=== PATIENT | male | born 1955 | race Caucasian/White ===

== ENCOUNTER → 2018-01-05 | Outpatient (CLI) | payer MEDICARE ==
--- NOTE | 2018-01-05 15:03 | Diagnostic Imaging Report ---
EXAMINATION: PA and lateral views of the chest. COMPARISON: None CLINICAL HISTORY: Shortness of breath DISCUSSION: The lungs are well-inflated. No focal airspace consolidation, pleural effusion, or pneumothorax. Linear opacity in the right middle lobe compatible with subsegmental atelectasis. Tortuosity and atherosclerotic calcification of the thoracic aorta with otherwise normal cardiomediastinal contour. No acute osseous abnormality. IMPRESSION: Subsegmental atelectasis in the right middle lobe. Otherwise no acute cardiopulmonary abnormality. Signed by: Dr. Walter Calvo M.D. on 01/05/2018 2:58 PM
== END ==
LOC: RAD 14:05
PROVIDERS: ATTEND Internal Medicine Pulmonary Disease
DX: R06.02 Shortness of breath (principal)
CPT/HCPCS: 71046

== ENCOUNTER → 2020-07-11 | Outpatient (CLI) | payer OTHER | LOC: DX 13:05 | PROVIDERS: ATTEND Internal Medicine | DX: Z13.820 Encounter for screening for osteoporosis (principal); M85.80 Other specified disorders of bone density and structure, unspecified site | CPT/HCPCS: 77080 ==

== ENCOUNTER → 2021-05-01 | Day surgery (SDC) | payer MEDICARE, OTHER ==
[~2021-05-01] MED LIST: DIAZEPAM5 MG PO; EYE DROPS15 M1; FLOMAX0.4 MG PO; LISINOPRIL5 MG PO; METHADONE HCL40 MG PO; OR PHACO EYE KIT ONE; PREOP PHACO EYE KIT ONE; antibiotic PO
[2021-05-01 13:55] VITALS: BP 147/93
== END | disposition home or self-care (01) ==
LOC: OR 11:23
PROVIDERS: ATTEND Ophthalmology
DX: H25.12 Age-related nuclear cataract, left eye (principal); E66.9 Obesity, unspecified; N39.0 Urinary tract infection, site not specified; N20.0 Calculus of kidney; R32 Unspecified urinary incontinence; J44.9 Chronic obstructive pulmonary disease, unspecified; I25.2 Old myocardial infarction; I25.10 Atherosclerotic heart disease of native coronary artery without angina pectoris; M54.9 Dorsalgia, unspecified; F41.9 Anxiety disorder, unspecified; F32.A Depression, unspecified; Z88.6 Allergy status to analgesic agent; Z01.812 Encounter for preprocedural laboratory examination; Z20.822 Contact with and (suspected) exposure to COVID-19; Z79.899 Other long term (current) drug therapy; Z68.34 Body mass index [BMI] 34.0-34.9, adult; Z86.19 Personal history of other infectious and parasitic diseases
CPT/HCPCS: U0002

== ENCOUNTER → 2022-01-22 | Outpatient (CLI) | payer OTHER ==
[~2022-01-22] MED LIST changes: -OR PHACO EYE KIT ONE; -PREOP PHACO EYE KIT ONE
== END ==
LOC: RAD 12:49
PROVIDERS: ATTEND Internal Medicine
DX: S92.52 Fracture of middle phalanx of lesser toe(s) (principal)

== ENCOUNTER 2022-03-10 16:16 | Inpatient (IN) | payer MEDICARE, OTHER ==
[~2022-03-10] VITALS: Ht 182.9 cm; Wt 110.3 kg
[2022-03-10 16:48] LABS: BASOPHILS % 0.3 % (0.0-1.0); EOSINOPHILS % 0.1 % (0.0-6.0); HEMATOCRIT 51.3 % (38.2-49.6); HEMOGLOBIN 15.6 g/dL (14.0-18.0); LYMPHOCYTES # (AUTO) 1.8 (1.0-3.2); MEAN CORPUSCULAR HEMOGLOBIN 29.1 pg (28-32); MEAN CORPUSCULAR HGB CONC 30.4 g/dL (31-35); MEAN CORPUSCULAR VOLUME 95.5 fL (81-99); MONOCYTES # (AUTO) 1.2 (0.2-0.8); MONOCYTES % 8.1 % (4.4-11.3); NEUTROPHILS % 78.5 % (38.7-80.0); PLATELET COUNT 233 x10e3/uL (140-360); RED BLOOD COUNT 5.37 x10e6/uL (4.3-5.7); RED CELL DISTRIBUTION WIDTH 15.9 % (11.7-14.4)
[2022-03-10 17:05] LABS: ALBUMIN 3.6 g/dL (3.5-5.0); ALBUMIN/GLOBULIN RATIO 0.9 (0.8-2.0); ANION GAP 18.4 mmol/L (8-16); CALCIUM 7.1 mg/dL (8.4-10.2); POTASSIUM 4.4 mmol/L (3.5-5.1)
[2022-03-10 17:37] LABS: CREATININE, SERUM 1.43 mg/dL (0.72-1.25)
[2022-03-10] MEDS ORDERED: ALBUTEROL SULF 0.083% NEB SOLN 3 ML NEB NEB STA (18:12)
[2022-03-10] MEDS ORDERED: METHYLPREDNISOLONE SOD SUCC 125 MG/2ML VIAL IV ONE (18:15)
[2022-03-10] MEDS ORDERED: IPRATROPIUM BROMIDE 0.02% 2.5 ML NEB NEB ONE (18:15)
[2022-03-10] MEDS ORDERED: SODIUM CHLORIDE 0.9% 1000ML 1,000 ML IV ONE (18:15)
[2022-03-10] MEDS ORDERED: SODIUM CHLORIDE FLUSH 10 ML SYR INJ PRN (19:30)
[2022-03-10 19:50] LABS: CLARITY,URINE SL CLOUDY (CLEAR); COLOR,URINE AMBER (YELLOW); KETONES,URINE TRACE (NEGATIVE); LEUKOCYTE ESTERASE ,URINE NEGATIVE (NEGATIVE); NITRITE,URINE NEGATIVE (NEGATIVE); PROTEIN,URINE DIPSTICK 2+ (NEGATIVE); URINE UROBILINOGEN 1 mg/dL (0.2 - 1)
[2022-03-10 20:00] VITALS: BP 118/73
[2022-03-10 20:24] LABS: BACTERIA,URINE RARE /HPF; WBC,URINE (MAN) 0-5 /HPF (0-5)
[2022-03-10 20:25] LABS: EPITHELIAL CELLS,URINE RARE /LPF
[2022-03-10] MEDS: ACETAMINOPHEN 325 MG TAB PO PRN (20:42)
[2022-03-10 20:51] VITALS: BP 118/73
[2022-03-10] MEDS: ALBUTEROL/IPRATROPIUM 3 ML NEB NEB SCH (23:00)
[2022-03-10] MEDS ORDERED: LISINOPRIL2.5 MG PO (23:57)
[2022-03-11] VITALS (7 sets, daily range): BP systolic 108–143; BP diastolic 62–81
[2022-03-11] MEDS: METHYLPREDNISOLONE SOD SUCC 40 MG/ML VIAL 1ML IV SCH ×3 (00:51→17:24)
[2022-03-11] MEDS: ALBUTEROL/IPRATROPIUM 3 ML NEB NEB SCH ×6 (03:00→23:35)
[2022-03-11 05:01] LABS: BASOPHILS % 0.1 % (0.0-1.0); HEMATOCRIT 48.4 % (38.2-49.6); HEMOGLOBIN 14.7 g/dL (14.0-18.0); LYMPHOCYTES % 9.8 % (18.0-39.1); MEAN CORPUSCULAR HEMOGLOBIN 29.5 pg (28-32); MEAN CORPUSCULAR HGB CONC 30.4 g/dL (31-35); MEAN CORPUSCULAR VOLUME 97.2 fL (81-99); MONOCYTES # (AUTO) 0.4 (0.2-0.8); MONOCYTES % 3.4 % (4.4-11.3); NEUTROPHILS # (AUTO) 9.1 (2.1-6.9); NEUTROPHILS % 85.8 % (38.7-80.0); PLATELET COUNT 212 x10e3/uL (140-360); RED BLOOD COUNT 4.98 x10e6/uL (4.3-5.7); RED CELL DISTRIBUTION WIDTH 15.9 % (11.7-14.4)
[2022-03-11 07:16] LABS: ANION GAP 16.5 mmol/L (8-16); CALCIUM 8.8 mg/dL (8.4-10.2); CREATININE, SERUM 1.09 mg/dL (0.72-1.25); POTASSIUM 5.5 mmol/L (3.5-5.1)
[2022-03-11 08:00] LABS: CREATINE KINASE MB 13.8 ng/mL (0-5.0)
[2022-03-11] MEDS ORDERED: ONDANSETRON HCL INJ 2MG/ML 2ML 2 MG/ML VIAL IV PRN (08:45)
[2022-03-11] MEDS ORDERED: METHADONE HCL 10 MG TAB PO SCH (09:00)
[2022-03-11] MEDS: DIAZEPAM 5 MG TAB PO PRN ×3 (09:10→22:17)
[2022-03-11] MEDS: ACETAMINOPHEN 325 MG TAB PO PRN (09:10)
[2022-03-11] MEDS ORDERED: SODIUM CHLORIDE 0.9% 250ML 250 ML ONE (09:17)
[2022-03-11] MEDS: METHADONE HCL 10 MG TAB PO SCH (13:00)
[2022-03-11] MEDS: SODIUM CHLORIDE 0.9% 1000ML 1,000 ML IV SCH ×2 (13:00→22:18)
[2022-03-11 13:04] LABS: ANION GAP 14.7 mmol/L (8-16); CALCIUM 8.2 mg/dL (8.4-10.2); POTASSIUM 4.7 mmol/L (3.5-5.1)
[2022-03-11] MEDS ORDERED: DOCUSATE SODIUM 100 MG CAP PO PRN (13:30)
[2022-03-11] MEDS ORDERED: BENZONATATE 100 MG CAP PO PRN (13:30)
[2022-03-11] MEDS ORDERED: ACETAMINOPHEN 325 MG TAB PO PRN (13:30)
[2022-03-11] MEDS ORDERED: LIDOCAINE 4% PATCH TP PRN (13:30)
[2022-03-11] MEDS ORDERED: HYDRALAZINE HCL 20 MG/ML VIAL IV PRN (13:30)
[2022-03-11] MEDS ORDERED: POTASSIUM CHLORIDE 20 MEQ TAB CR PO PRN (13:30)
[2022-03-11] MEDS ORDERED: ALBUTEROL/IPRATROPIUM 3 ML NEB NEB PRN (13:30)
[2022-03-11] MEDS ORDERED: DIPHENHYDRAMINE HCL 25 MG CAP PO PRN (13:30)
[2022-03-11] MEDS ORDERED: SIMETHICONE 80 MG CHEW PO PRN (13:30)
[2022-03-11] MEDS ORDERED: MELATONIN 5 MG TABLET PO PRN (13:30)
[2022-03-11] MEDS ORDERED: DEXTROSE 50% SYRINGE 50 ML IV PRN (13:30)
[2022-03-11 13:36] LABS: CREATINE KINASE MB 9.8 ng/mL (0-5.0)
[2022-03-11] MEDS ORDERED: LIDOCAINE 4% PATCH TP SCH (14:00)
[2022-03-11] MEDS: LIDOCAINE 4% PATCH TP PRN (14:29)
[2022-03-11] MEDS: NICOTINE 21 MG/EA PATCH TOP PRN (14:29)
[2022-03-11 16:46] LABS: ANION GAP 12.8 mmol/L (8-16); CREATININE, SERUM 1.02 mg/dL (0.72-1.25); POTASSIUM 4.8 mmol/L (3.5-5.1)
[2022-03-11] MEDS ORDERED: ENOXAPARIN SOD INJ 40 MG/0.4 ML SYR SC SCH (17:00)
[2022-03-11] MEDS: ENOXAPARIN SOD INJ 40 MG/0.4 ML SYR SC SCH (17:24)
[2022-03-11] MEDS: BUDESONIDE/FORMOTEROL 160/4.5MCG INHALER INH SCH (19:45)
[2022-03-11 21:16] LABS: CREATINE KINASE MB 5.9 ng/mL (0-5.0)
[2022-03-11] MEDS: CARBIDOPA/LEVODOPA 25/100 TAB PO SCH (22:17)
[2022-03-11] MEDS: TAMSULOSIN HCL 0.4 MG CAP PO SCH (22:18)
[2022-03-12] VITALS: BP 110/63
[2022-03-12] MEDS: SODIUM CHLORIDE 0.9% 1000ML 1,000 ML IV SCH ×3 (00:27→22:55)
[2022-03-12] MEDS: ALBUTEROL/IPRATROPIUM 3 ML NEB NEB SCH ×6 (03:00→23:50)
[2022-03-12 04:19] VITALS: BP 110/71
[2022-03-12 04:56] LABS: BASOPHILS % 0.2 % (0.0-1.0); HEMATOCRIT 39.7 % (38.2-49.6); HEMOGLOBIN 12.7 g/dL (14.0-18.0); LYMPHOCYTES # (AUTO) 1.1 (1.0-3.2); LYMPHOCYTES % 9.5 % (18.0-39.1); MEAN CORPUSCULAR HEMOGLOBIN 29.3 pg (28-32); MEAN CORPUSCULAR VOLUME 91.5 fL (81-99); MONOCYTES # (AUTO) 0.5 (0.2-0.8); MONOCYTES % 4.6 % (4.4-11.3); NEUTROPHILS # (AUTO) 9.8 (2.1-6.9); NEUTROPHILS % 84.6 % (38.7-80.0); PLATELET COUNT 195 x10e3/uL (140-360); RED BLOOD COUNT 4.34 x10e6/uL (4.3-5.7); RED CELL DISTRIBUTION WIDTH 15.7 % (11.7-14.4)
[2022-03-12 05:13] LABS: ANION GAP 13.2 mmol/L (8-16); CALCIUM 7.6 mg/dL (8.4-10.2); CREATININE, SERUM 0.88 mg/dL (0.72-1.25); POTASSIUM 4.2 mmol/L (3.5-5.1)
[2022-03-12] MEDS ORDERED: PANTOPRAZOLE SOD 40 MG TABEC PO SCH (07:30)
[2022-03-12 08:02] VITALS: BP 121/72
[2022-03-12] MEDS: CARBIDOPA/LEVODOPA 25/100 TAB PO SCH ×3 (09:02→22:54)
[2022-03-12] MEDS: METHADONE HCL 10 MG TAB PO SCH (09:06)
[2022-03-12] MEDS: TIOTROPIUM 18 MCG INH POWDER INH SCH (09:10)
[2022-03-12] MEDS: BUDESONIDE/FORMOTEROL 160/4.5MCG INHALER INH SCH ×2 (09:10→18:45)
[2022-03-12] MEDS: METHYLPREDNISOLONE SOD SUCC 40 MG/ML VIAL 1ML IV SCH ×2 (09:12→16:36)
[2022-03-12] MEDS ORDERED: ONDANSETRON HCL 4 MG ORAL DISINTEGRATING TAB PO PRN (09:30)
[2022-03-12] MEDS: DIAZEPAM 5 MG TAB PO PRN ×2 (10:23→16:36)
[2022-03-12 12:01] VITALS: BP 116/71
[2022-03-12 16:10] VITALS: BP 127/72
[2022-03-12] MEDS: ENOXAPARIN SOD INJ 40 MG/0.4 ML SYR SC SCH (16:36)
[2022-03-12 20:00] VITALS: BP 122/79
[2022-03-12] MEDS: TAMSULOSIN HCL 0.4 MG CAP PO SCH (22:55)
[2022-03-13] VITALS (7 sets, daily range): BP systolic 132–155; BP diastolic 75–92
[2022-03-13] MEDS: ALBUTEROL/IPRATROPIUM 3 ML NEB NEB SCH ×6 (03:00→22:45)
[2022-03-13 05:36] LABS: BASOPHILS % 0.3 % (0.0-1.0); HEMATOCRIT 38.9 % (38.2-49.6); HEMOGLOBIN 12.3 g/dL (14.0-18.0); LYMPHOCYTES # (AUTO) 1.2 (1.0-3.2); LYMPHOCYTES % 12.9 % (18.0-39.1); MEAN CORPUSCULAR HEMOGLOBIN 29.4 pg (28-32); MEAN CORPUSCULAR HGB CONC 31.6 g/dL (31-35); MEAN CORPUSCULAR VOLUME 92.8 fL (81-99); MONOCYTES # (AUTO) 0.7 (0.2-0.8); MONOCYTES % 6.8 % (4.4-11.3); NEUTROPHILS # (AUTO) 7.4 (2.1-6.9); NEUTROPHILS % 78.4 % (38.7-80.0); PLATELET COUNT 183 x10e3/uL (140-360); RED BLOOD COUNT 4.19 x10e6/uL (4.3-5.7); RED CELL DISTRIBUTION WIDTH 15.9 % (11.7-14.4)
[2022-03-13] MEDS: SODIUM CHLORIDE 0.9% 1000ML 1,000 ML IV SCH ×2 (06:05→21:37)
[2022-03-13 06:08] LABS: ANION GAP 13.5 mmol/L (8-16); CALCIUM 7.5 mg/dL (8.4-10.2); CREATININE, SERUM 0.85 mg/dL (0.72-1.25); POTASSIUM 4.5 mmol/L (3.5-5.1)
[2022-03-13 06:19] LABS: MAGNESIUM 2.1 MG/DL (1.3-2.1); PHOSPHORUS 2.6 MG/DL (2.3-4.7)
[2022-03-13 06:40] LABS: THYROID STIMULATING HORMONE 0.303 uIU/mL (0.350-4.940)
[2022-03-13] MEDS: TIOTROPIUM 18 MCG INH POWDER INH SCH (07:38)
[2022-03-13] MEDS: BUDESONIDE/FORMOTEROL 160/4.5MCG INHALER INH SCH ×2 (07:38→19:25)
[2022-03-13] MEDS: CARBIDOPA/LEVODOPA 25/100 TAB PO SCH ×3 (08:38→21:37)
[2022-03-13] MEDS: METHADONE HCL 10 MG TAB PO SCH (08:38)
[2022-03-13] MEDS: METHYLPREDNISOLONE SOD SUCC 40 MG/ML VIAL 1ML IV SCH ×2 (09:54→17:32)
[2022-03-13] MEDS: ENOXAPARIN SOD INJ 40 MG/0.4 ML SYR SC SCH (17:20)
[2022-03-13] MEDS: AZITHROMYCIN 250 MG TAB PO SCH (17:21)
[2022-03-13] MEDS: DIAZEPAM 5 MG TAB PO PRN (17:21)
[2022-03-13 17:30] LABS: INR 1.06
[2022-03-13 17:31] LABS: PARTIAL THROMBOPLASTIN TIME 25.4 seconds (23.8-35.5)
[2022-03-13] MEDS: TAMSULOSIN HCL 0.4 MG CAP PO SCH (21:37)
[2022-03-14 02:09] VITALS: BP 146/83
[2022-03-14] MEDS: ALBUTEROL/IPRATROPIUM 3 ML NEB NEB SCH ×6 (02:55→22:20)
[2022-03-14 06:38] VITALS: BP 144/83
[2022-03-14] MEDS: BUDESONIDE/FORMOTEROL 160/4.5MCG INHALER INH SCH ×2 (06:41→19:20)
[2022-03-14] MEDS: TIOTROPIUM 18 MCG INH POWDER INH SCH (06:41)
[2022-03-14 07:50] VITALS: BP 141/93
[2022-03-14] MEDS ORDERED: Vancomycin IV 1 GM VIAL ONE (07:53)
[2022-03-14] MEDS ORDERED: THROMBIN FOR SOLN 5,000 UNIT VIAL ONE (07:53)
[2022-03-14] MEDS ORDERED: LIDOCAINE HCL/EPINEPHRINE/PF 10 ML VIAL ONE (07:53)
[2022-03-14] MEDS ORDERED: HYDRALAZINE HCL 20 MG/ML VIAL IV PRN (08:00)
[2022-03-14] MEDS: METHYLPREDNISOLONE SOD SUCC 40 MG/ML VIAL 1ML IV SCH ×2 (08:22→18:00)
[2022-03-14] MEDS: METHADONE HCL 10 MG TAB PO SCH (08:42)
[2022-03-14] MEDS: LIDOCAINE 4% PATCH TP PRN (08:43)
[2022-03-14] MEDS: NICOTINE 21 MG/EA PATCH TOP PRN (08:43)
[2022-03-14 08:58] VITALS: BP 141/93
[2022-03-14] MEDS: CARBIDOPA/LEVODOPA 25/100 TAB PO SCH ×2 (09:00→14:52)
[2022-03-14] MEDS ORDERED: ACETAMINOPHEN 1000 MG/100 ML 100 ML IV ONE (09:15)
[2022-03-14] MEDS ORDERED: PROPOFOL IV EMULSION 0 ML IV ONE (09:16)
[2022-03-14] MEDS ORDERED: MAGNESIUM/ALUMINUM/SIMETHICONE 30 ML UDC PO PRN (10:45)
[2022-03-14] MEDS ORDERED: Morphine 4mg INJECTION 4 MG/ML INJ IM PRN (10:45)
[2022-03-14] MEDS ORDERED: ONDANSETRON HCL INJ 2MG/ML 2ML 2 MG/ML VIAL IV PRN (10:45)
[2022-03-14] MEDS ORDERED: CARISOPRODOL 350 MG TAB PO PRN (10:45)
[2022-03-14] MEDS ORDERED: ACETAMINOPHEN 325 MG TAB PO PRN (10:45)
[2022-03-14] MEDS ORDERED: PROMETHAZINE HCL (IM) 25 MG/ML VIAL IM PRN (10:45)
[2022-03-14] MEDS ORDERED: SUGAMMADEX SODIUM 200 MG/2 ML VIAL IV ONE (10:53)
[2022-03-14] MEDS ORDERED: DEXTROSE 50% SYRINGE 50 ML IV ONE (10:54)
[2022-03-14] MEDS ORDERED: GLYCOPYRROLATE INJ 0.2 MG/ML VIAL ONE (12:27)
[2022-03-14] MEDS ORDERED: DEXAMETHASONE SOD PHOS INJ 4 MG/ML SDV ONE (12:27)
[2022-03-14] MEDS ORDERED: EPHEDRINE SULFATE INJ 50 MG/ML VIAL ONE (12:27)
[2022-03-14] MEDS ORDERED: SEVOFLURANE INHAL SOLN 250 ML PEN BTL ONE (12:27)
[2022-03-14] MEDS ORDERED: LIDOCAINE HCL 2% LOCAL INJ 5 ML SDV VIAL INJ ONE (12:27)
[2022-03-14] MEDS ORDERED: PROPOFOL IV EMULSION 10 MG/ML 20 ML VIAL ONE (12:27)
[2022-03-14] MEDS ORDERED: ROCURONIUM BROMIDE 10 MG/ML 5ML VIAL IV ONE (12:27)
[2022-03-14] MEDS ORDERED: NEOSTIGMINE 1 MG/ML 10ML VIAL ONE (12:27)
[2022-03-14] MEDS ORDERED: ONDANSETRON HCL INJ 2MG/ML 2ML 2 MG/ML VIAL ONE (12:27)
[2022-03-14] MEDS ORDERED: LIDOCAINE HCL 2% JELLY 5 ML TUBE ONE (12:27)
[2022-03-14] MEDS ORDERED: POVIDONE IODINE 0.05% 0.05 % ML PO ONE (12:27)
[2022-03-14] MEDS: SODIUM CHLORIDE 0.9% 1000ML 1,000 ML IV SCH ×2 (12:53→22:39)
[2022-03-14] MEDS ORDERED: KETAMINE HCL INJ 50 MG/ML 10 ML VIAL ONE (13:15)
[2022-03-14] MEDS ORDERED: FENTANYL CITRATE/PF 100MCG/2 ML INJ ONE (13:15)
[2022-03-14] MEDS ORDERED: MIDAZOLAM HCL 2 MG/2 ML VIAL ONE (13:15)
[2022-03-14] MEDS: DIAZEPAM 5 MG TAB PO PRN ×2 (13:29→17:59)
[2022-03-14] MEDS: HYDROMORPHONE 2MG/ML 2 MG/ML ML IV PRN ×3 (13:29→22:15)
[2022-03-14] MEDS: OXYCODONE/ACETAMINOPHEN 5-325 1 EACH TABLET PO PRN ×2 (14:49→20:29)
[2022-03-14 15:09] VITALS: BP 155/97
[2022-03-14] MEDS: ENOXAPARIN SOD INJ 40 MG/0.4 ML SYR SC SCH (17:59)
[2022-03-14] MEDS: AZITHROMYCIN 250 MG TAB PO SCH (18:00)
[2022-03-14] MEDS: TAMSULOSIN HCL 0.4 MG CAP PO SCH (20:29)
[2022-03-14 23:30] VITALS: BP 122/77
[2022-03-15] VITALS (8 sets, daily range): BP systolic 133–165; BP diastolic 81–92
[2022-03-15] MEDS: ALBUTEROL/IPRATROPIUM 3 ML NEB NEB SCH ×6 (03:00→23:05)
[2022-03-15] MEDS: OXYCODONE/ACETAMINOPHEN 5-325 1 EACH TABLET PO PRN ×3 (04:48→20:53)
[2022-03-15] MEDS: LACTATED RINGER'S 1,000 ML IV SCH ×2 (04:48→04:53)
[2022-03-15] MEDS: TIOTROPIUM 18 MCG INH POWDER INH SCH (06:00)
[2022-03-15] MEDS: BUDESONIDE/FORMOTEROL 160/4.5MCG INHALER INH SCH ×2 (07:00→19:42)
[2022-03-15] MEDS: METHADONE HCL 10 MG TAB PO SCH (08:24)
[2022-03-15] MEDS: HYDROMORPHONE 2MG/ML 2 MG/ML ML IV PRN (08:25)
[2022-03-15] MEDS ORDERED: MAGNESIUM HYDROXIDE 30 ML UDC PO PRN (08:30)
[2022-03-15] MEDS ORDERED: BISACODYL 10 MG SUPP PR PRN (08:30)
[2022-03-15] MEDS: METHYLPREDNISOLONE SOD SUCC 40 MG/ML VIAL 1ML IV SCH ×2 (08:35→16:52)
[2022-03-15 09:38] LABS: BASOPHILS % 0.1 % (0.0-1.0); HEMATOCRIT 41.9 % (38.2-49.6); HEMOGLOBIN 12.6 g/dL (14.0-18.0); LYMPHOCYTES # (AUTO) 1.3 (1.0-3.2); LYMPHOCYTES % 14.8 % (18.0-39.1); MEAN CORPUSCULAR HGB CONC 30.1 g/dL (31-35); MEAN CORPUSCULAR VOLUME 96.5 fL (81-99); MONOCYTES # (AUTO) 0.6 (0.2-0.8); NEUTROPHILS # (AUTO) 6.8 (2.1-6.9); NEUTROPHILS % 76.5 % (38.7-80.0); PLATELET COUNT 202 x10e3/uL (140-360); RED BLOOD COUNT 4.34 x10e6/uL (4.3-5.7); RED CELL DISTRIBUTION WIDTH 15.8 % (11.7-14.4)
[2022-03-15 09:52] LABS: ANION GAP 12.2 mmol/L (8-16); CALCIUM 7.8 mg/dL (8.4-10.2); CREATININE, SERUM 0.86 mg/dL (0.72-1.25); POTASSIUM 4.2 mmol/L (3.5-5.1)
[2022-03-15] MEDS: POLYETHYLENE GLYCOL 3350 17 GM PACK PO SCH ×2 (10:34→16:51)
[2022-03-15] MEDS: SENNA-S TABLET PO SCH ×2 (10:34→16:51)
[2022-03-15] MEDS: DIAZEPAM 5 MG TAB PO PRN ×2 (13:49→21:04)
[2022-03-15] MEDS: AZITHROMYCIN 250 MG TAB PO SCH (16:51)
[2022-03-15] MEDS: ENOXAPARIN SOD INJ 40 MG/0.4 ML SYR SC SCH (16:52)
[2022-03-15] MEDS: TAMSULOSIN HCL 0.4 MG CAP PO SCH (20:50)
[2022-03-16] VITALS (8 sets, daily range): BP systolic 114–151; BP diastolic 73–91
[2022-03-16] MEDS: OXYCODONE/ACETAMINOPHEN 5-325 1 EACH TABLET PO PRN ×2 (02:09→06:19)
[2022-03-16] MEDS: ALBUTEROL/IPRATROPIUM 3 ML NEB NEB SCH ×6 (02:50→23:10)
[2022-03-16 06:01] LABS: BASOPHILS % 0.3 % (0.0-1.0); EOSINOPHILS % 0.1 % (0.0-6.0); HEMATOCRIT 45.6 % (38.2-49.6); HEMOGLOBIN 13.9 g/dL (14.0-18.0); LYMPHOCYTES # (AUTO) 1.8 (1.0-3.2); LYMPHOCYTES % 23.6 % (18.0-39.1); MEAN CORPUSCULAR HEMOGLOBIN 29.3 pg (28-32); MEAN CORPUSCULAR HGB CONC 30.5 g/dL (31-35); MEAN CORPUSCULAR VOLUME 96.2 fL (81-99); MONOCYTES # (AUTO) 0.7 (0.2-0.8); MONOCYTES % 8.7 % (4.4-11.3); NEUTROPHILS # (AUTO) 5.1 (2.1-6.9); NEUTROPHILS % 65.4 % (38.7-80.0); PLATELET COUNT 213 x10e3/uL (140-360); RED BLOOD COUNT 4.74 x10e6/uL (4.3-5.7); RED CELL DISTRIBUTION WIDTH 16.1 % (11.7-14.4)
[2022-03-16 06:47] LABS: ANION GAP 11.6 mmol/L (8-16); CALCIUM 8.5 mg/dL (8.4-10.2); CREATININE, SERUM 0.86 mg/dL (0.72-1.25); POTASSIUM 4.6 mmol/L (3.5-5.1)
[2022-03-16] MEDS: TIOTROPIUM 18 MCG INH POWDER INH SCH (07:00)
[2022-03-16] MEDS: BUDESONIDE/FORMOTEROL 160/4.5MCG INHALER INH SCH ×2 (07:00→19:55)
[2022-03-16] MEDS: METHYLPREDNISOLONE SOD SUCC 40 MG/ML VIAL 1ML IV SCH ×2 (09:19→16:58)
[2022-03-16] MEDS: POLYETHYLENE GLYCOL 3350 17 GM PACK PO SCH ×2 (09:19→16:58)
[2022-03-16] MEDS: SENNA-S TABLET PO SCH ×2 (09:20→16:58)
[2022-03-16] MEDS: METHADONE HCL 10 MG TAB PO SCH (09:22)
[2022-03-16] MEDS: DIAZEPAM 5 MG TAB PO PRN ×2 (10:48→17:53)
[2022-03-16] MEDS: HYDROMORPHONE 2MG/ML 2 MG/ML ML IV PRN ×3 (14:27→22:07)
[2022-03-16] MEDS: AZITHROMYCIN 250 MG TAB PO SCH (16:58)
[2022-03-16] MEDS: ENOXAPARIN SOD INJ 40 MG/0.4 ML SYR SC SCH (16:58)
[2022-03-16] MEDS: TAMSULOSIN HCL 0.4 MG CAP PO SCH (20:53)
[2022-03-17] VITALS (8 sets, daily range): BP systolic 123–145; BP diastolic 78–90
[2022-03-17] MEDS: ALBUTEROL/IPRATROPIUM 3 ML NEB NEB SCH ×6 (02:53→23:30)
[2022-03-17] MEDS: HYDROMORPHONE 2MG/ML 2 MG/ML ML IV PRN ×6 (04:31→22:07)
[2022-03-17] MEDS: BUDESONIDE/FORMOTEROL 160/4.5MCG INHALER INH SCH ×2 (06:47→19:00)
[2022-03-17] MEDS: DIAZEPAM 5 MG TAB PO PRN ×2 (08:58→17:32)
[2022-03-17] MEDS: POLYETHYLENE GLYCOL 3350 17 GM PACK PO SCH ×2 (08:58→17:31)
[2022-03-17] MEDS: SENNA-S TABLET PO SCH ×2 (08:58→17:32)
[2022-03-17] MEDS: METHADONE HCL 10 MG TAB PO SCH (08:59)
[2022-03-17] MEDS: METHYLPREDNISOLONE SOD SUCC 40 MG/ML VIAL 1ML IV SCH (09:52)
[2022-03-17] MEDS: TIOTROPIUM 18 MCG INH POWDER INH SCH (10:41)
[2022-03-17] MEDS: AZITHROMYCIN 250 MG TAB PO SCH ×2 (17:32→18:39)
[2022-03-17] MEDS: ENOXAPARIN SOD INJ 40 MG/0.4 ML SYR SC SCH (17:33)
[2022-03-17] MEDS: OXYCODONE/ACETAMINOPHEN 5-325 1 EACH TABLET PO PRN (18:40)
[2022-03-17] MEDS: TAMSULOSIN HCL 0.4 MG CAP PO SCH (20:53)
[2022-03-18] VITALS: BP 123/76
[2022-03-18] MEDS: ALBUTEROL/IPRATROPIUM 3 ML NEB NEB SCH ×4 (03:00→19:05)
[2022-03-18 04:00] VITALS: BP 121/84
[2022-03-18] MEDS: HYDROMORPHONE 2MG/ML 2 MG/ML ML IV PRN (06:09)
[2022-03-18] MEDS ORDERED: ALBUTEROL/IPRATROPIUM 3 ML NEB NEB PRN (07:15)
[2022-03-18] MEDS ORDERED: ONDANSETRON HCL 4 MG ORAL DISINTEGRATING TAB PO PRN (07:15)
[2022-03-18] MEDS ORDERED: CELECOXIB 200 MG CAP PO PRN (07:15)
[2022-03-18] MEDS ORDERED: OMEPRAZOLE 20 MG CAP PO SCH (07:30)
[2022-03-18 07:40] LABS: BASOPHILS % 0.4 % (0.0-1.0); EOSINOPHILS # (AUTO) 0.1 (0.0-0.4); EOSINOPHILS % 0.9 % (0.0-6.0); HEMATOCRIT 51.5 % (38.2-49.6); HEMOGLOBIN 15.3 g/dL (14.0-18.0); LYMPHOCYTES # (AUTO) 2.1 (1.0-3.2); LYMPHOCYTES % 25.9 % (18.0-39.1); MEAN CORPUSCULAR HEMOGLOBIN 29.1 pg (28-32); MEAN CORPUSCULAR HGB CONC 29.7 g/dL (31-35); MEAN CORPUSCULAR VOLUME 97.9 fL (81-99); MONOCYTES # (AUTO) 0.7 (0.2-0.8); MONOCYTES % 8.5 % (4.4-11.3); NEUTROPHILS # (AUTO) 5.2 (2.1-6.9); PLATELET COUNT 169 x10e3/uL (140-360); RED BLOOD COUNT 5.26 x10e6/uL (4.3-5.7); RED CELL DISTRIBUTION WIDTH 16.3 % (11.7-14.4)
[2022-03-18 07:58] LABS: ANION GAP 14.3 mmol/L (8-16); CALCIUM 8.4 mg/dL (8.4-10.2); CREATININE, SERUM 0.88 mg/dL (0.72-1.25); POTASSIUM 4.3 mmol/L (3.5-5.1)
[2022-03-18 08:01] VITALS: BP 135/80
[2022-03-18 08:26] VITALS: BP 135/80
[2022-03-18] MEDS ORDERED: PREDNISONE 20 MG TAB PO SCH (09:00)
[2022-03-18] MEDS ORDERED: METHADONE HCL 10 MG TAB PO SCH (09:00)
[2022-03-18] MEDS: POLYETHYLENE GLYCOL 3350 17 GM PACK PO SCH ×2 (09:39→16:13)
[2022-03-18] MEDS: GABAPENTIN 100 MG CAP PO SCH ×3 (09:42→20:22)
[2022-03-18] MEDS: SENNA-S TABLET PO SCH ×2 (09:43→16:13)
[2022-03-18] MEDS: DIAZEPAM 5 MG TAB PO PRN ×2 (10:28→20:30)
[2022-03-18] MEDS: TIOTROPIUM 18 MCG INH POWDER INH SCH (10:33)
[2022-03-18] MEDS: BUDESONIDE/FORMOTEROL 160/4.5MCG INHALER INH SCH ×2 (10:33→19:20)
[2022-03-18] MEDS: OXYCODONE/ACETAMINOPHEN 5-325 1 EACH TABLET PO PRN ×3 (12:02→20:22)
[2022-03-18 12:57] VITALS: BP 131/89
[2022-03-18 17:08] VITALS: BP 125/77
[2022-03-18] MEDS: TAMSULOSIN HCL 0.4 MG CAP PO SCH (20:22)
== END 2022-03-18 21:02 | DRG 471 ==
LOC: ER 16:22 → ERHOLD 19:27 → MED/SURG 20:37
PROVIDERS: ADMIT Internal Medicine; ATTEND Internal Medicine
PROC: 0RG10K0 Fusion of Cervical Vertebral Joint with Nonautologous Tissue Substitute, Anterior Approach, Anterior Column, Open Approach (ICD-10-PCS; principal; 2022-03-14 09:35)
DX: M47.12 Other spondylosis with myelopathy, cervical region (principal); J18.9 Pneumonia, unspecified organism; J96.91 Respiratory failure, unspecified with hypoxia; J44.1 Chronic obstructive pulmonary disease with (acute) exacerbation; J44.0 Chronic obstructive pulmonary disease with (acute) lower respiratory infection; G21.19 Other drug induced secondary parkinsonism; M62.82 Rhabdomyolysis; Z68.33 Body mass index [BMI] 33.0-33.9, adult; K59.00 Constipation, unspecified; E11.649 Type 2 diabetes mellitus with hypoglycemia without coma; G20 Parkinson's disease; E11.22 Type 2 diabetes mellitus with diabetic chronic kidney disease; E66.01 Morbid (severe) obesity due to excess calories; R53.1 Weakness; M25.551 Pain in right hip; G47.33 Obstructive sleep apnea (adult) (pediatric); M25.562 Pain in left knee; M25.561 Pain in right knee; F41.9 Anxiety disorder, unspecified; N18.9 Chronic kidney disease, unspecified; M47.22 Other spondylosis with radiculopathy, cervical region; T50.995A Adverse effect of other drugs, medicaments and biological substances, initial encounter; M48.02 Spinal stenosis, cervical region; Z79.891 Long term (current) use of opiate analgesic; Z91.81 History of falling; Z87.891 Personal history of nicotine dependence; Z88.5 Allergy status to narcotic agent; Z20.822 Contact with and (suspected) exposure to COVID-19
CPT/HCPCS: 36415; 70450; 70551; 71045; 71250; 72040; 72125; 72128; 72141; 72148; 76000; 80048; 80053; 81001; 82550; 82552; 82553; 82607; 82746; 82948; 83036; 83605; 83735; 83880; 84100; 84443; 84484; 85025; 85610; 85730; 86850; 86900; 87040; 87070; 87071; 87205; 88304; 88311; 93005; 94664; 94799; 96361; 99285; C1713; J0360; J0456; J0690; J0696; J1100; J1650; J2001; J2250; J2270; J2405; J2710; J2920; J2930; J3010; J3370; J7030; J7050; J7121; J7512; J7799